=== PATIENT | male | born 1995 | race Caucasian/White ===

== ENCOUNTER 2016-03-29 11:36 | Emergency (ER) | payer SELFPAY ==
[2016-03-29 11:48] VITALS: BP 122/62; PULSE 62; RESP 18; TEMP 100; O2SAT 96
--- NOTE | 2016-03-29 12:09 | UCPHY ---
H & P Time Seen by Provider: 03/29/16 11:59 Patient Type: Established HPI/ROS: This patient reports onset of fever the day before this visit in association with sore throat for 4 days and a cough for the same period of time occasionally productive of yellow sputum. He notes no exacerbating factors for his symptoms. He states the cough is moderate in severity. States the sore throat is also moderate in severity ROS: No high fevers or chills but he does have some subjective low-grade fevers. No other constitutional complaints. HEENT: No ear pain. No difficulty swallowing food. Pulmonary: No respiratory distress or pleuritic pain. 5 point ROS is otherwise negative Smoking Status: Current some day smoker Physical Exam: Physical Exam Vital signs are normal. General: No acute distress HEENT: Nose: Clear oropharynx: No significant erythema or exudates. Ears: External canals and TMs clear bilaterally. Eyes: Pupils equal and react to light. Extraocular motions are intact. Lungs: Patient has mild rhonchi and expiratory wheeze bilaterally. No rales. No respiratory distress. Cardiac: Regular rate and rhythm with no murmur gallop or rub. Skin: No rash or pallor. Neuro: Alert with normal mental status Initial differential diagnosis: Strep versus viral pharyngitis, bronchitis Constitutional: Initial Vital Signs Temperature (C) 37.7 C 03/29/16 11:47 Heart Rate 62 03/29/16 11:47 Respiratory Rate 18 03/29/16 11:47 Blood Pressure 122/62 H 03/29/16 11:47 O2 Sat (%) 96 03/29/16 11:47 O2 Delivery Mode Room Air Allergies/Adverse Reactions: No Known Allergies Allergy (Verified 04/23/15 19:35) Home Medications: Medication Instructions Recorded Albuterol Hfa Anes Only [Proair 2 puffs IH Q4 PRN #1 mdi 03/29/16 Hfa Icu (*)] Azithromycin [Zithromax] 250 mg PO DAILY #6 tab 03/29/16 Medical Decision Making ED Course/Re-evaluation: Rapid strep is negative. I counseled patient regarding bronchitis. Departure - Departure Disposition: Home, Routine, Self-Care Clinical Impression: Acute bronchitis Qualifiers: Bronchitis organism: unspecified organism Qualifier Code: (J20.9) Acute bronchitis, unspecified Condition: Fair Instructions: Acute Bronchitis (ED) Additional Instructions: Diagnosis: Acute bronchitis 2. Pharyngitis Plan: Humidifier Zithromax antibiotic Albuterol inhaler with spacer for cough, wheeze or shortness of breath Ibuprofen and Tylenol for discomfort as needed No work today. It is okay to go back tomorrow. Referrals: SOHA HITCHCOCK,. [Primary Care Provider] - As per Instructions Stand Alone Forms: Work Excuse Prescriptions: Albuterol Hfa Anes Only [Proair Hfa Icu (*)] 2 puffs IH Q4 PRN #1 mdi PRN Reason: Wheezing Azithromycin [Zithromax] 250 mg PO DAILY #6 tab - PQRS PQRS Measurement: NA
== END 2016-03-29 12:17 | disposition home or self-care (01) ==
LOC: CED 11:36
DX: J20.9 Acute bronchitis, unspecified (principal)
CPT/HCPCS: 87400-PO; 87880-PO; 99214-PO; G0463-PO